=== PATIENT | male | born 1955 | race Caucasian/White ===

== ENCOUNTER 2017-11-02 11:32 | Observation (INO) | payer BC ==
[~2017-11-02] VITALS: Ht 188 cm; Wt 71.7 kg
[~2017-11-02 11:32] MED LIST: AMLODIPINE BESYL5 MG PO; CRESTOR10 MG PO; Z.0.CRESTOR10 MG PO; Z.0.PLAVIX75 MG
[2017-11-02] MEDS ORDERED: KETOROLAC TROMETHAMINE 30 MG/ML VIAL IV STA (11:38)
[2017-11-02 11:55] LABS: BASOPHILS % 0.4 % (0.0-1.0); EOSINOPHILS % 0.3 % (0.0-6.0); HEMOGLOBIN 18.2 g/dL (14.0-18.0); LYMPHOCYTES # (AUTO) 0.7 (1.0-3.2); LYMPHOCYTES % 6.7 % (18.0-39.1); MEAN CORPUSCULAR HEMOGLOBIN 29.7 pg (28-32); MEAN CORPUSCULAR HGB CONC 33.7 g/dL (31-35); MEAN CORPUSCULAR VOLUME 88.1 fL (81-99); MONOCYTES # (AUTO) 0.7 (0.2-0.8); MONOCYTES % 6.3 % (4.4-11.3); NEUTROPHILS % 85.8 % (38.7-80.0); PLATELET COUNT 315 x10e3/uL (140-360); RED BLOOD COUNT 6.13 x10e6/uL (4.3-5.7); RED CELL DISTRIBUTION WIDTH 14.5 % (11.7-14.4)
[2017-11-02 12:13] LABS: ANION GAP 14.5 mmol/L (8-16); BLOOD UREA NITROGEN 11 mg/dL (7-26); BUN/CREATININE RATIO 12 (6-25); CALCIUM 9.7 mg/dL (8.4-10.2); CARBON DIOXIDE 25 mmol/L (22-29); CHLORIDE 103 mmol/L (98-107); CREATININE, SERUM 0.93 mg/dL (0.72-1.25); EST GLOMERULAR FILTRATION RATE > 60 ML/MIN (60-); GLUCOSE 103 mg/dL (74-118); POTASSIUM 4.5 mmol/L (3.5-5.1); SODIUM 138 mmol/L (136-145)
--- NOTE | 2017-11-02 12:52 | Diagnostic Imaging Report ---
EXAM: CT Abdomen and Pelvis WITHOUT contrast INDICATION: Right flank pain COMPARISON: None. TECHNIQUE: Abdomen and Pelvis was scanned utilizing a multidetector helical scanner without the use of IV contrast. Coronal and sagittal reformations were obtained. IV CONTRAST: None COMPLICATIONS: None RADIATION DOSE: Total DLP: 238 mGy*cm Estimated effective dose: (DLP x 0.015 x size factor) mSv CTDIvol has been reviewed. It is below the limits set by the Radiation Protocol Committee (RPC). FINDINGS: Abdomen: Lung Bases: Atelectasis present in the lung bases with mild centrilobular emphysematous change and a few simple appearing cysts. Solid Organs: Nonenhanced images of the liver, adrenals, spleen, and pancreas are unremarkable. Several nonobstructing calculi are present in the right kidney, largest 8 mm. There is a 7 mm proximal to mid right ureteral calculus with mild to moderate right hydronephrosis. Upper GI Tract: Mild thickening distal esophageal wall, which can be seen in the setting of reflux. No small bowel obstructive changes. Vascularity: Mild aortic vascular calcifications with no aortic aneurysm. 24 mm aneurysm left common iliac artery and 23 mm aneurysm right common iliac artery. Lymph Nodes: Within limitations of nonenhanced exam, no suspicious adenopathy. Other: Partially decompressed, limiting evaluation. Pelvis: Bladder: Unremarkable. Other: Enlarged prostate 60 mm. Postsurgical changes inguinal canals bilaterally. Colon: No acute colonic findings. No evidence of appendicitis. Bones: No acute findings. IMPRESSION: 1. 7 mm calculus proximal to mid right ureter with hydronephrosis. 2. Nonobstructing right renal calculi. 3. Enlarged prostate. Clinical and laboratory correlation recommended. 4. Bilateral common iliac aneurysms. Signed by: Dr. Negro Doss MD on 11/02/2017 12:49 PM
[2017-11-02 13:40] LABS: BILIRUBIN,URINE 1+ (NEGATIVE); CLARITY,URINE SL CLOUDY (CLEAR); COLOR,URINE YELLOW (YELLOW); KETONES,URINE 2+ (NEGATIVE); LEUKOCYTE ESTERASE ,URINE TRACE (NEGATIVE); NITRITE,URINE NEGATIVE (NEGATIVE); PROTEIN,URINE DIPSTICK TRACE (NEGATIVE); URINE UROBILINOGEN 0.2 mg/dL (0.2 - 1)
[2017-11-02 13:54] LABS: BACTERIA,URINE RARE /HPF; RBC,URINE 21-50 /HPF (0-5); WBC,URINE (MAN) 0-5 /HPF (0-5)
[2017-11-02 13:55] LABS: EPITHELIAL CELLS,URINE RARE /LPF
[2017-11-02 13:56] LABS: YEAST,URINE FEW
[2017-11-02] MEDS ORDERED: ONDANSETRON HCL INJ 2 MG/ML VIAL IV PRN (14:00)
[2017-11-02] MEDS: SODIUM CHLORIDE 0.9% 1000ML 1,000 ML IV SCH (16:03)
[2017-11-02] MEDS: HYDROMORPHONE 2MG/ML INJ IV PRN (16:03)
[2017-11-02 18:13] VITALS: BP 149/94
[2017-11-02 18:35] VITALS: BP 149/94
[2017-11-02 19:23] VITALS: BP 139/77
[2017-11-02 19:45] VITALS: BP 139/77
[2017-11-03] VITALS (8 sets, daily range): BP systolic 126–150; BP diastolic 81–94
[2017-11-03] MEDS: SODIUM CHLORIDE 0.9% 1000ML 1,000 ML IV SCH ×2 (01:05→18:29)
[2017-11-03] MEDS: HYDROMORPHONE 2MG/ML INJ IV PRN ×2 (02:15→06:26)
[2017-11-03 06:39] LABS: BASOPHILS % 0.4 % (0.0-1.0); EOSINOPHILS # (AUTO) 0.1 (0.0-0.4); EOSINOPHILS % 1.9 % (0.0-6.0); HEMATOCRIT 49.3 % (38.2-49.6); HEMOGLOBIN 16.5 g/dL (14.0-18.0); LYMPHOCYTES # (AUTO) 1.9 (1.0-3.2); LYMPHOCYTES % 25.4 % (18.0-39.1); MEAN CORPUSCULAR HEMOGLOBIN 30.1 pg (28-32); MEAN CORPUSCULAR HGB CONC 33.5 g/dL (31-35); MONOCYTES # (AUTO) 0.9 (0.2-0.8); NEUTROPHILS # (AUTO) 4.4 (2.1-6.9); NEUTROPHILS % 59.9 % (38.7-80.0); PLATELET COUNT 289 x10e3/uL (140-360); RED BLOOD COUNT 5.48 x10e6/uL (4.3-5.7); RED CELL DISTRIBUTION WIDTH 14.6 % (11.7-14.4)
[2017-11-03 06:56] LABS: ANION GAP 12.4 mmol/L (8-16); BLOOD UREA NITROGEN 13 mg/dL (7-26); BUN/CREATININE RATIO 15 (6-25); CALCIUM 8.5 mg/dL (8.4-10.2); CARBON DIOXIDE 25 mmol/L (22-29); CHLORIDE 108 mmol/L (98-107); CREATININE, SERUM 0.84 mg/dL (0.72-1.25); EST GLOMERULAR FILTRATION RATE > 60 ML/MIN (60-); GLUCOSE 97 mg/dL (74-118); POTASSIUM 4.4 mmol/L (3.5-5.1); SODIUM 141 mmol/L (136-145)
[2017-11-03] MEDS: LEVOFLOXACIN 500MG/D5W 100ML 100 ML IV SCH (09:54)
[2017-11-04] VITALS (9 sets, daily range): BP systolic 125–183; BP diastolic 79–96
[2017-11-04] MEDS: SODIUM CHLORIDE 0.9% 1000ML 1,000 ML IV SCH ×4 (03:55→21:53)
--- NOTE | 2017-11-04 06:55 | Diagnostic Imaging Report ---
EXAM: ABDOMEN-1VIEW (KUB) DATE: 11/04/2017 6:07 AM Time stamp on exam: 6:10 AM INDICATION: Nephrolithiasis COMPARISON: 11/02/2017 CT of the abdomen and pelvis without contrast FINDINGS: LINES/TUBES: None BOWEL PATTERN: No evidence for obstruction. SOFT TISSUES: There is a 1 cm calcification overlying the interpolar region of the right kidney compatible with nephrolithiasis. There is also a 9 mm stone overlying the right L5 transverse process compatible with mid ureteral stone LUNG BASES: Not included BONES: No acute findings. IMPRESSION: Right-sided nephrolithiasis and right-sided proximal right ureteral stone as described above. Signed by: Dr. Celestine Ivy M.D. on 11/04/2017 6:52 AM
[2017-11-04] MEDS: LEVOFLOXACIN 500MG/D5W 100ML 100 ML IV SCH (09:59)
[2017-11-05 04:18] VITALS: BP 163/96
[2017-11-05] MEDS: SODIUM CHLORIDE 0.9% 1000ML 1,000 ML IV SCH ×2 (05:53→14:43)
[2017-11-05] MEDS ORDERED: IOPAMIDOL 610MG/1ML 300 MG/ML VIAL IV ONE ×2 (06:26)
[2017-11-05 07:05] VITALS: BP 161/91
[2017-11-05] MEDS: LEVOFLOXACIN 500MG/D5W 100ML 100 ML IV SCH (08:43)
[2017-11-05 08:45] VITALS: BP 138/86
[2017-11-05 11:14] VITALS: BP 179/92
[2017-11-05] MEDS ORDERED: ROSUVASTATIN CALCIUM 5 MG PO SCH (12:00)
[2017-11-05] MEDS ORDERED: AMLODIPINE BESYLATE 5 MG TAB PO SCH (12:00)
--- NOTE | 2017-11-05 12:23 | Operative Report ---
DATE OF PROCEDURE: November 05, 2017 PREOPERATIVE DIAGNOSES 1. Microscopic hematuria. 2. Right-sided hydronephrosis. POSTOPERATIVE DIAGNOSES 1. Microscopic hematuria. 2. Right-sided hydronephrosis. PROCEDURES 1. Cystourethroscopy with bilateral ureteral catheterization and bilateral retrograde pyelograms (entirely separate procedure for microscopic hematuria). 2. Cystourethroscopy with insertion of a right indwelling ureteral stent (entirely separate procedure for diagnosis of right hydronephrosis). 3. Supervision of fluoroscopy. 4. Interpretation of retrograde pyelography. ANESTHESIA: General. ESTIMATED BLOOD LOSS: Minimal. COMPLICATIONS: None. INDICATIONS FOR PROCEDURE: Mr. Thompson is a very pleasant, 61-year-old male who has a 7 x 8-mm proximal right ureteral stone. He has failed a trial of passage. He and I had a long discussion regarding the alternatives, risks and benefits, including doing nothing, stent placement, percutaneous surgery and open surgery. He voiced an understanding of the options, the alternatives, and the risks and benefits, and he elected to proceed. PROCEDURE IN DETAIL: Informed consent was obtained. The patient was taken to the operative suite and placed supine on the operative table and underwent general anesthesia by the anesthesia service. He was placed in the dorsal lithotomy position. He was sterilely prepped and draped in the standard fashion for cystoscopy. A 22.5-Maldivian cystoscope was inserted per urethra. A normal urethra was noted. Panendoscopy of the bladder revealed no tumors and no stones. Both ureteral orifices were normal in their location and position and were seen to efflux clear urine. Bilateral retrograde pyelograms were performed. The left was normal. The right revealed a 7 x 8-mm proximal ureteral calculus with proximal hydronephrosis. A guidewire was inserted and seen to flow proximal to the ureteral calculus. A 5-Maldivian, open-ended catheter was utilized to manipulate the calculus cephalad. It was advanced proximal to the stone. A hydronephrotic drip was seen. The wire was then placed. A stent was placed, 6 x 28 cm, with a coil in the upper pole of the kidney and a coil in the bladder. The patient's bladder was drained. He was awakened from anesthesia and transported to the recovery room in excellent condition. SUPERVISION OF FLUOROSCOPY AND INTERPRETATION OF RETROGRADE PYELOGRAPHY: I was present throughout the entire procedure and supervised the use of fluoroscopy. There was no radiologist present at any time during the procedure. Attention was turned toward the left and right ureteral orifices, which were catheterized with a 5-Maldivian, open-ended catheter. The left was normal. The right revealed a 7 x 8-mm proximal ureteral calculus with hydronephrosis. Postoperatively, the right ureteral stent was in good position. Job#: [id number]
[2017-11-05 15:46] VITALS: BP 156/80
[2017-11-05] MEDS ORDERED: SEVOFLURANE INHAL SOLN 250 ML PEN BTL ONE (18:15)
[2017-11-05] MEDS ORDERED: LIDOCAINE HCL 2% LOCAL INJ 5 ML SDV VIAL INJ ONE (18:15)
[2017-11-05] MEDS ORDERED: PROPOFOL IV EMULSION 10 MG/ML 20 ML VIAL ONE (18:15)
[2017-11-05] MEDS ORDERED: EPHEDRINE SULFATE INJ 50 MG/10 ML SYR ONE (18:15)
[2017-11-05] MEDS ORDERED: ONDANSETRON HCL INJ 2 MG/ML VIAL ONE (18:15)
[2017-11-05] MEDS ORDERED: DEXAMETHASONE SOD PHOS INJ 4 MG/ML VIAL ONE (18:15)
[2017-11-05] MEDS ORDERED: FENTANYL CITRATE/PF 100MCG/2 ML INJ ONE (18:19)
[2017-11-05] MEDS ORDERED: MIDAZOLAM HCL 2 MG/2 ML VIAL ONE (18:19)
[2017-11-05] MEDS ORDERED: SIMVASTATIN 20 MG TAB PO SCH (21:00)
== END 2017-11-05 17:04 | disposition home or self-care (01) ==
LOC: ER 11:32 → ERHOLD 16:23 → IMCU 16:25
PROVIDERS: ADMIT Internal Medicine; ATTEND Internal Medicine
DX: N13.2 Hydronephrosis with renal and ureteral calculous obstruction (principal); N39.0 Urinary tract infection, site not specified; I25.10 Atherosclerotic heart disease of native coronary artery without angina pectoris; I10 Essential (primary) hypertension; E78.5 Hyperlipidemia, unspecified; E11.9 Type 2 diabetes mellitus without complications; Z86.73 Personal history of transient ischemic attack (TIA), and cerebral infarction without residual deficits
CPT/HCPCS: 36415 ×2; 52332; 74000; 74176; 74420; 80048 ×2; 81001; 85025 ×2; 87086; 96360; 96361; 99284; G0378 ×4; J1100; J1170 ×2; J1885; J1956 ×3; J2001; J2250; J2405 ×2; J7030 ×4; Q9967

== ENCOUNTER 2017-11-23 20:13 | Inpatient (IN) | payer BC ==
[~2017-11-23] VITALS: Ht 188 cm; Wt 73.0 kg
--- OUTSIDE RECORDS SUMMARY | 2017-11-23 20:17 | XMS REPORT ---
Author Author [facility] Address Unknown Phone Unavailable Care Team Providers Care Prescription Clerk Name Role Phone ROXANA SHIPMAN Unavailable Unavailable Problems This patient has no known problems. Allergies, Adverse Reactions, Alerts This patient has no known allergies or adverse reactions. Medications This patient has no known medications. Results Test Description Test Time Test Comments Text Results Atomic Results Result Comments ABDOMEN-1VIEW (KUB) [place] [address] Patient Name: OTIS CRESPO MR #: [id number] : 1955 Age/Sex: 62/M Req # : [id number] Adm Physician: ROXANA SHIPMAN MD Ordered by: ROXANA SHIPMAN MD Report #: [id number] Location: [facility] Room/Bed: [place] [address] _ Procedure: [id number] DX/ABDOMEN-1VIEW (KUB) Exam Date: 11/04/17 Exam Time: 0610 REPORT STATUS: Signed EXAM: ABDOMEN- 1VIEW (KUB) DATE: 11/04/2017 6:07 AM Time stamp on exam: 6:10 AM INDICATION : Nephrolithiasis COMPARISON: 11/02/2017 CT of the abdomen and pelvis without contrast FINDINGS: LINES/TUBES: None BOWEL PATTERN: No evidence for obstruction. SOFT TISSUES: There is a 1 cm calcification overlying the interpolar region of the right kidney compatible with nephrolithiasis. There is also a 9 mm stone overlying the right L5 transverse process compatible with mid ureteral stone LUNG BASES: Not included BONES: No acute findings. IMPRESSION: Right-sided nephrolithiasis and right-sided proximal right ureteral stone as described above. Signed by: Dr. Celestine Ivy M.D. on 11/04/2017 6:52 AM Dictated By: CELESTINE COLE MD 1 Transcribed By: WILD on 11/04/17651 COPY TO: ROXANA SHIPMAN MD CT ABDOMEN/PELVIS WO [place] [address] Patient Name: OTIS CRESPO MR #: [id number] : 1955 Age/Sex: 61/M Req # : [id number] Adm Physician: Ordered by: ESTELA BLANCA MD Report #: [id number] Location: ER Room/Bed: Procedure: [id number] CT/CT ABDOMEN/PELVIS WO Exam Date: 11/02/17 Exam Time: 1220 REPORT STATUS: Signed EXAM: CT Abdomen and Pelvis WITHOUT contrast INDICATION: Right flank pain COMPARISON: None. TECHNIQUE: Abdomen and Pelvis was scanned utilizing a multidetector helical scanner without the use of IV contrast. Coronal and sagittal reformations were obtained. IV CONTRAST: None COMPLICATIONS : None RADIATION DOSE: Total DLP: 238 mGy*cm Estimated effective dose: (DLP x 0.015 x size factor) mSv CTDIvol has been reviewed. It is below the limits set by the Radiation Protocol Committee (RPC) . FINDINGS: Abdomen: Lung Bases: Atelectasis present in the lung bases with mild centrilobular emphysematous change and a few simple appearing cysts. Solid Organs: Nonenhanced images of the liver, adrenals, spleen, and pancreas are unremarkable. Several nonobstructing calculi are present in the right kidney, largest 8 mm. There is a 7 mm proximal to mid right ureteral calculus with mild to moderate right hydronephrosis. Upper GI Tract: Mild thickening distal esophageal wall, which can be seen in the setting of reflux. No small bowel obstructive changes. Vascularity: Mild aortic vascular calcifications with no aortic aneurysm. 24 mm aneurysm left common iliac artery and 23 mm aneurysm right common iliac artery. Lymph Nodes: Within limitations of nonenhanced exam, no suspicious adenopathy. Other: Partially decompressed, limiting evaluation. Pelvis: Bladder: Unremarkable. Other: Enlarged prostate 60 mm. Postsurgical changes inguinal canals bilaterally. Colon: No acute colonic findings. No evidence of appendicitis. Bones: No acute findings. IMPRESSION: 1. 7 mm calculus proximal to mid right ureter with hydronephrosis. 2. Nonobstructing right renal calculi. 3. Enlarged prostate. Clinical and laboratory correlation recommended. 4. Bilateral common iliac aneurysms. Signed by: Dr. Negro Doss MD on 11/02/2017 12:49 PM Dictated By: NEGRO DOSS MD 1245 Transcribed By: WILD on 11/02/17 1249 COPY TO: ESTELA BLANCA MD
[2017-11-23] MEDS ORDERED: MORPHINE SULFATE 4 MG/ML SYR IV STA (20:34)
[2017-11-23] MEDS ORDERED: SODIUM CHLORIDE 0.9% 1000ML 1,000 ML IV STA (20:34)
[2017-11-23] MEDS ORDERED: ONDANSETRON HCL INJ 2 MG/ML VIAL IV STA (20:34)
[2017-11-23] MEDS ORDERED: MORPHINE SULFATE 2 MG/ML SYR ONE (21:04)
[2017-11-23] MEDS ORDERED: HYDROMORPHONE 1MG/1ML INJ IV STA (21:27)
[2017-11-23 21:50] LABS: BASOPHILS % 0.2 % (0.0-1.0); EOSINOPHILS % 0.3 % (0.0-6.0); HEMATOCRIT 52.3 % (38.2-49.6); LYMPHOCYTES # (AUTO) 1.1 (1.0-3.2); LYMPHOCYTES % 8.1 % (18.0-39.1); MEAN CORPUSCULAR HEMOGLOBIN 30.1 pg (28-32); MEAN CORPUSCULAR HGB CONC 34.4 g/dL (31-35); MEAN CORPUSCULAR VOLUME 87.5 fL (81-99); MONOCYTES # (AUTO) 0.8 (0.2-0.8); MONOCYTES % 6.2 % (4.4-11.3); NEUTROPHILS # (AUTO) 11.5 (2.1-6.9); NEUTROPHILS % 84.6 % (38.7-80.0); PLATELET COUNT 352 x10e3/uL (140-360); RED BLOOD COUNT 5.98 x10e6/uL (4.3-5.7); RED CELL DISTRIBUTION WIDTH 14.5 % (11.7-14.4)
[2017-11-23 21:52] LABS: BILIRUBIN,URINE NEGATIVE (NEGATIVE); COLOR,URINE YELLOW (YELLOW); KETONES,URINE 2+ (NEGATIVE); LEUKOCYTE ESTERASE ,URINE NEGATIVE (NEGATIVE); NITRITE,URINE NEGATIVE (NEGATIVE); URINE UROBILINOGEN 0.2 mg/dL (0.2 - 1)
[2017-11-23 22:02] LABS: PROTEIN,URINE DIPSTICK 1+ (NEGATIVE)
[2017-11-23 22:03] LABS: CLARITY,URINE HAZY (CLEAR)
[2017-11-23 22:20] LABS: BACTERIA,URINE FEW /HPF; RBC,URINE >50 /HPF (0-5); WBC,URINE (MAN) 0-5 /HPF (0-5)
--- NOTE | 2017-11-23 22:48 | Diagnostic Imaging Report ---
EXAM: CT ABDOMEN AND PELVIS without IV CONTRAST ORDER DATE: 11/23/2017 8:34 PM Time stamp on Exam: 2214 hours INDICATION: Stomach and right-sided pain COMPARISON: CT of the abdomen and pelvis November 02, 2017 TECHNIQUE: The abdomen and pelvis were scanned using a multidetector helical scanner. Coronal and sagittal reformations were obtained. Renal stone protocol performed. IV Contrast: None Oral Contrast: None CTDIvol has been reviewed. It is below the limits set by the Radiation Protocol Committee (RPC). FINDINGS: LOWER THORAX: Stable chronic changes in the lung bases including reticulation, traction bronchiectasis, groundglass opacities and cystic spaces. LIVER: No masses BILIARY: Normal gallbladder. No ductal dilation. SPLEEN: No masses PANCREAS: No masses ADRENALS: No nodules RIGHT KIDNEY: Conglomeration of stones up to 1.5 cm in the distal right ureter near the ureterovesicular junction resulting in moderate to severe hydroureteronephrosis and periureteral fat stranding. Several small stones in the superior and inferior calyces measuring up to 3 mm. LEFT KIDNEY: No nephroureterolithiasis or hydronephrosis. GI TRACT: Partially visualized moderate hiatal hernia with nonspecific mucosal thickening. Normal appendix. VESSELS: Moderate atherosclerotic changes of the abdominal aorta without aneurysm. PERITONEUM/RETROPERITONEUM: No free air or fluid LYMPH NODES: No lymphadenopathy REPRODUCTIVE ORGANS: The prostate measures 5.5 cm in transverse diameter. BLADDER: Small focus of air in the bladder, please correlate with recent instrumentation. SOFT TISSUES: Surgical changes of pelvic anterior hernia repair. BONES: No suspicious bone lesions. IMPRESSION: Stone conglomerate measuring up to 1.5 cm in length in the distal right ureter near the ureterovesicular junction resulting in moderate to severe right hydroureteronephrosis and periureteral fat stranding. Signed by: Dr. Tosin Rawls M.D. on 11/23/2017 10:44 PM
[2017-11-23 23:03] LABS: ALANINE AMINOTRANSFERASE 14 IU/L (0-55); ALBUMIN 3.8 g/dL (3.5-5.0); ALBUMIN/GLOBULIN RATIO 0.8 (0.8-2.0); ALKALINE PHOSPHATASE 86 IU/L (40-150); ANION GAP 17.3 mmol/L (8-16); BLOOD UREA NITROGEN 11 mg/dL (7-26); BUN/CREATININE RATIO 9 (6-25); CALCIUM 9.6 mg/dL (8.4-10.2); CARBON DIOXIDE 22 mmol/L (22-29); CHLORIDE 96 mmol/L (98-107); CREATINE KINASE 117 IU/L (30-200); CREATININE, SERUM 1.21 mg/dL (0.72-1.25); EST GLOMERULAR FILTRATION RATE > 60 ML/MIN (60-); GLUCOSE 100 mg/dL (74-118); POTASSIUM 4.3 mmol/L (3.5-5.1); SODIUM 131 mmol/L (136-145)
[2017-11-23] MEDS ORDERED: PANTOPRAZOLE 40 MG 10ML VIAL IV STA (23:29)
[2017-11-24] VITALS (7 sets, daily range): BP systolic 118–133; BP diastolic 74–81
[2017-11-24] MEDS: SODIUM CHLORIDE 0.9% 1000ML 1,000 ML IV SCH ×3 (00:02→19:20)
[2017-11-24] MEDS: CEFTRIAXONE SOD 1 GM VIAL IV SCH ×2 (00:02→23:24)
[2017-11-24] MEDS: ONDANSETRON HCL INJ 2 MG/ML VIAL IV PRN ×4 (00:02→22:30)
[2017-11-24] MEDS: HYDROMORPHONE 1MG/1ML INJ IV PRN ×2 (00:03→04:11)
[2017-11-24 07:47] LABS: BASOPHILS % 0.2 % (0.0-1.0); EOSINOPHILS # (AUTO) 0.1 (0.0-0.4); EOSINOPHILS % 0.6 % (0.0-6.0); HEMATOCRIT 46.8 % (38.2-49.6); HEMOGLOBIN 15.8 g/dL (14.0-18.0); LYMPHOCYTES # (AUTO) 1.3 (1.0-3.2); LYMPHOCYTES % 10.6 % (18.0-39.1); MEAN CORPUSCULAR HEMOGLOBIN 29.6 pg (28-32); MEAN CORPUSCULAR HGB CONC 33.8 g/dL (31-35); MEAN CORPUSCULAR VOLUME 87.6 fL (81-99); MONOCYTES # (AUTO) 1.2 (0.2-0.8); MONOCYTES % 9.2 % (4.4-11.3); NEUTROPHILS # (AUTO) 9.9 (2.1-6.9); PLATELET COUNT 304 x10e3/uL (140-360); RED BLOOD COUNT 5.34 x10e6/uL (4.3-5.7)
[2017-11-24 08:06] LABS: ANION GAP 10.1 mmol/L (8-16); BLOOD UREA NITROGEN 10 mg/dL (7-26); BUN/CREATININE RATIO 10 (6-25); CALCIUM 8.6 mg/dL (8.4-10.2); CARBON DIOXIDE 24 mmol/L (22-29); CHLORIDE 102 mmol/L (98-107); CREATININE, SERUM 1.01 mg/dL (0.72-1.25); EST GLOMERULAR FILTRATION RATE > 60 ML/MIN (60-); GLUCOSE 97 mg/dL (74-118); POTASSIUM 4.1 mmol/L (3.5-5.1); SODIUM 132 mmol/L (136-145)
--- NOTE | 2017-11-24 08:30 | Diagnostic Imaging Report ---
PROCEDURE:ABDOMEN-1VIEW (KUB) TECHNIQUE:Supine AP abdomen totaling 2 radiographs INDICATION:Right UVJ calculus COMPARISON:Patients [facility], CT, CT ABDOMEN/PELVIS WO, 11/23/2017, 22:13. FINDINGS: See conclusion. CONCLUSION: 1. 1 x 0.7 cm stone at the right ureterovesicular junction unchanged from the CT of November 23, 2017. Stable numerous punctate calcifications behind the stone are also unchanged. 2. Punctate right inferior pole stones unchanged. 3. Normal bowel gas pattern. Dictated by: Godwin Agustin M.D. on 11/24/2017 at 8:39 Electronically approved by: Godwin Agustin M.D. on 11/24/2017 at 8:39
[2017-11-24] MEDS: PANTOPRAZOLE 40 MG 10ML VIAL IV SCH (09:04)
--- NOTE | 2017-11-24 09:09 | History and Physical ---
This patient came in for abdominal pain, flank pain. HISTORY OF PRESENT ILLNESS: This patient came in with abdominal pain, intensity 8/10, also with hematuria. The patient recently had lithotripsy and stent removal by Dr. Lee, and apparently, as per studies, the stone has not budged, and he needs a stent again. PAST MEDICAL HISTORY: History of hypertension. History of hyperlipidemia. The patient also has a history of kidney stones. SURGICAL HISTORY: History of tonsillectomy and adenoidectomy. Also had atrioseptal defect repair when he was young. Right kidney stent placement as noted. Also, history of cervical laminectomy by Dr. Eisenberg. SOCIAL HISTORY: History of smoking. No EtOH. No IV drug abuse. He is still a smoker. REVIEW OF SYSTEMS: Negative for chest pain. Possible shortness of breath. Positive for nausea. No vomiting or diarrhea. No constipation. No rectal bleeding. No hematochezia. No hematemesis. Positive for hematuria. Positive for flank pain, also. MEDICATIONS: Amlodipine 5 mg and rosuvastatin 10 mg. PHYSICAL EXAMINATION VITAL SIGNS: Temperature 97.2, pulse 75, respirations 17, blood pressure 119/80, pulse ox 94% on room air. HEENT: Normocephalic and atraumatic. LUNGS: Decreased air entry. ABDOMEN: Right flank pain with right-sided CVA tenderness and suprapubic tenderness. EXTREMITIES: No clubbing. No cyanosis. No edema. IMAGING STUDIES: Abdominal CT shows stone conglomerate measuring about 1.5 cm in length, distal right ureter near the UV junction, resulting in severe hydronephrosis. ASSESSMENT AND PLAN: Nephrolithiasis with hydronephrosis. Consult with Dr. Lee has been done. The patient will be taken for another stent. Pain control and continue home medications. Further recommendations per the clinical course. Will continue to monitor the patient. The patient's white count as been 13,000. Neutrophil count 11.5. Chemistries: Sodium 131, BUN 11, creatinine 1.21. Will continue to monitor the patient, and he will be taken for a stent today. Job#: [id number]
[2017-11-24] MEDS: HYDROMORPHONE 2MG/ML INJ IV PRN ×3 (12:00→22:30)
[2017-11-25] VITALS (7 sets, daily range): BP systolic 113–135; BP diastolic 72–82
[2017-11-25] MEDS: HYDROMORPHONE 2MG/ML INJ IV PRN ×4 (04:32→20:01)
[2017-11-25] MEDS: SODIUM CHLORIDE 0.9% 1000ML 1,000 ML IV SCH ×3 (04:32→23:53)
[2017-11-25] MEDS: ONDANSETRON HCL INJ 2 MG/ML VIAL IV PRN ×2 (04:32→20:11)
[2017-11-25 07:06] LABS: BASOPHILS % 0.5 % (0.0-1.0); EOSINOPHILS # (AUTO) 0.2 (0.0-0.4); EOSINOPHILS % 1.9 % (0.0-6.0); HEMATOCRIT 45.7 % (38.2-49.6); HEMOGLOBIN 15.2 g/dL (14.0-18.0); LYMPHOCYTES # (AUTO) 1.5 (1.0-3.2); LYMPHOCYTES % 18.5 % (18.0-39.1); MEAN CORPUSCULAR HEMOGLOBIN 29.6 pg (28-32); MEAN CORPUSCULAR HGB CONC 33.3 g/dL (31-35); MEAN CORPUSCULAR VOLUME 89.1 fL (81-99); MONOCYTES # (AUTO) 0.8 (0.2-0.8); MONOCYTES % 10.3 % (4.4-11.3); NEUTROPHILS # (AUTO) 5.5 (2.1-6.9); NEUTROPHILS % 68.3 % (38.7-80.0); PLATELET COUNT 315 x10e3/uL (140-360); RED BLOOD COUNT 5.13 x10e6/uL (4.3-5.7); RED CELL DISTRIBUTION WIDTH 14.2 % (11.7-14.4)
[2017-11-25 07:26] LABS: ANION GAP 14.3 mmol/L (8-16); BLOOD UREA NITROGEN 15 mg/dL (7-26); BUN/CREATININE RATIO 15 (6-25); CARBON DIOXIDE 23 mmol/L (22-29); CHLORIDE 103 mmol/L (98-107); CREATININE, SERUM 0.98 mg/dL (0.72-1.25); EST GLOMERULAR FILTRATION RATE > 60 ML/MIN (60-); GLUCOSE 71 mg/dL (74-118); POTASSIUM 4.3 mmol/L (3.5-5.1); SODIUM 136 mmol/L (136-145)
[2017-11-25] MEDS: PANTOPRAZOLE 40 MG 10ML VIAL IV SCH (09:30)
--- NOTE | 2017-11-25 17:44 | Diagnostic Imaging Report ---
PROCEDURE:X-RAY ABDOMEN - KUB COMPARISON:Patients [facility], CT, CT ABDOMEN/PELVIS WO, 11/23/2017, 22:13. Patients [facility], DX, ABDOMEN-1VIEW (KUB), 11/24/2017, 8:03. INDICATIONS:KIDNEY STONE FOLLOW UP FINDINGS: There are no dilated loops of bowel to suggest obstruction. A 0.8 cm calcific density again projected on the left hemipelvis laterally, unchanged. There is no evidence of free air. No acute osseous abnormalities are present. Status post bilateral internal hernia repair with mesh. Mild degenerative changes of the bilateral SI and hip joints. CONCLUSION: A 0.8 cm calcific density again projected on the left hemipelvis laterally, unchanged. Onofre Edwards M.D. Dictated by: Onofre Edwards M.D. on 11/25/2017 at 17:53 Electronically approved by: Onofre Edwards M.D. on 11/25/2017 at 17:53
[2017-11-25] MEDS: CEFTRIAXONE SOD 1 GM VIAL IV SCH (20:01)
[2017-11-26] VITALS: BP 134/82
[2017-11-26] MEDS: CEFTRIAXONE SOD 1 GM VIAL IV SCH (00:10)
[2017-11-26] MEDS: HYDROMORPHONE 2MG/ML INJ IV PRN (00:10)
[2017-11-26] MEDS: ONDANSETRON HCL INJ 2 MG/ML VIAL IV PRN (00:10)
[2017-11-26 01:39] VITALS: BP 134/82
[2017-11-26 04:00] VITALS: BP 160/84
[2017-11-26] MEDS ORDERED: IOPAMIDOL 610MG/1ML 300 MG/ML VIAL IV ONE (06:43)
[2017-11-26 08:47] VITALS: BP 162/86
[2017-11-26] MEDS: PANTOPRAZOLE 40 MG 10ML VIAL IV SCH (08:51)
--- NOTE | 2017-11-26 09:33 | Operative Report ---
DATE OF PROCEDURE: November 26, 2017 PREOPERATIVE DIAGNOSES: 1. Right hydronephrosis. 2. Microscopic hematuria. POSTOPERATIVE DIAGNOSES: 1. Right hydronephrosis. 2. Microscopic hematuria. PROCEDURES: 1. Cystourethroscopy with right ureteral stent placement (entirely separate procedure for right hydronephrosis). 2. Supervision of fluoroscopy. 3. Interpretation of retrograde pyelography. ANESTHESIA: General. ESTIMATED BLOOD LOSS: Minimal. COMPLICATIONS: None. INDICATIONS: Mr. Thompson is a 62-year-old male who had a previous staged lithotripsy, now presents with steinstrasse and obstructing blocked right kidney. He and I had a long discussion regarding alternatives, risks and benefits including doing nothing, stent placement which is temporary. He voiced understanding of the options, alternatives, risks, and benefits, and elected to proceed. PROCEDURE IN DETAIL: After informed consent was obtained, the patient was taken to the operative suite and placed supine on the operating table. He underwent general anesthesia by the anesthesia services. He was placed in dorsal lithotomy position and sterilely prepped and draped in a standard fashion for cystoscopy. A 22.5-Tuvaluan cystoscope was inserted per urethra. A normal urethra was noted. Panendoscopy of the bladder revealed no stones. Right ureteral orifice was catheterized. Retrograde pyelogram was performed revealing very large steinstrasse on the right distal ureter with severe proximal hydronephrosis with ureteral tortuosity. With moderate degree of difficulty, guidewire was inserted proximal to this and the open-ended was advanced proximal, hydronephrotic drip briskly was seen. A 6 x 28 cm ureteral stent was deployed with a coil in the renal pelvis and a coil in the patient's bladder. Patient's bladder was drained. He was awakened from anesthesia and transported to the recovery room in excellent condition. SUPERVISION OF FLUOROSCOPY AND INTERPRETATION OF RETROGRADE PYELOGRAPHY: I was present throughout the entire procedure and I supervised the use of fluoroscopy. There was no radiologist present at any time during this procedure. Attention was turned towards the right ureteral orifice, which was catheterized. Retrograde pyelogram was performed revealing distal 1.5 cm steinstrasse and proximal hydronephrosis. Postoperative views revealed the right ureteral stent in good position. Job#: [id number]
[2017-11-26 11:37] VITALS: BP 138/78
[2017-11-26] MEDS ORDERED: DEXAMETHASONE SOD PHOS INJ 4 MG/ML VIAL ONE (15:01)
[2017-11-26] MEDS ORDERED: ONDANSETRON HCL INJ 2 MG/ML VIAL ONE (15:01)
[2017-11-26] MEDS ORDERED: SEVOFLURANE INHAL SOLN 250 ML PEN BTL ONE (15:01)
[2017-11-26] MEDS ORDERED: LIDOCAINE HCL 2% LOCAL INJ 5 ML SDV VIAL INJ ONE (15:01)
[2017-11-26] MEDS ORDERED: PROPOFOL IV EMULSION 10 MG/ML 20 ML VIAL ONE (15:01)
[2017-11-26] MEDS ORDERED: FENTANYL CITRATE/PF 100MCG/2 ML INJ ONE (17:29)
[2017-11-26] MEDS ORDERED: MIDAZOLAM HCL 2 MG/2 ML VIAL ONE (17:29)
== END 2017-11-26 15:04 | disposition home or self-care (01) | DRG 694 ==
LOC: ER 20:13 → ERHOLD 23:46 → INTOOBSV 23:46 → IMCU 11-24 04:25 → OBSVTOIN 11-25 19:23 → MED/SURG2 11-26 13:32
PROVIDERS: ADMIT Internal Medicine; ATTEND Internal Medicine
PROC: BT1D1ZZ Fluoroscopy of Right Kidney, Ureter and Bladder using Low Osmolar Contrast (ICD-10-PCS; 2017-11-26)
PROC: 0T9680Z Drainage of Right Ureter with Drainage Device, Via Natural or Artificial Opening Endoscopic (ICD-10-PCS; principal; 2017-11-26 06:49)
DX: N13.2 Hydronephrosis with renal and ureteral calculous obstruction (principal); I10 Essential (primary) hypertension; E78.5 Hyperlipidemia, unspecified; I25.10 Atherosclerotic heart disease of native coronary artery without angina pectoris; Z95.1 Presence of aortocoronary bypass graft; Z86.73 Personal history of transient ischemic attack (TIA), and cerebral infarction without residual deficits; Z87.74 Personal history of (corrected) congenital malformations of heart and circulatory system
CPT/HCPCS: 36415; 74018; 74176; 74420; 80048; 80053; 81001; 82550; 82553; 84484; 85025; 87086; 96365; 96374; 96375; 96376; 99284; C2617; G0378; J0696; J1100; J2001; J2250; J2270; J2405; J7030

== ENCOUNTER → 2018-04-06 | Outpatient (CLI) | payer BC ==
--- NOTE | 2018-04-06 11:16 | Diagnostic Imaging Report ---
PROCEDURE:ABDOMEN-1VIEW (KUB) TECHNIQUE:Supine AP abdomen totaling 3 radiographs INDICATION:Calculus of kidney COMPARISON:[facility], DX, ABDOMEN-1VIEW (KUB), 11/25/2017, 16:06. FINDINGS: See conclusion. CONCLUSION: 1. No conspicuous calcifications overlying the kidneys or ureters. 2. Small vascular calcifications of the left sacral foramen. 3. Hernia repair. Normal bowel gas pattern. 4. Intact skeleton. Dictated by: Godwin Agustin M.D. on 04/06/2018 at 11:18 Electronically approved by: Godwin Agustin M.D. on 04/06/2018 at 11:18
== END | disposition home or self-care (01) ==
LOC: RAD 10:42
PROVIDERS: ATTEND Urology
DX: N20.0 Calculus of kidney (principal)
CPT/HCPCS: 74018

== ENCOUNTER → 2018-11-30 | Outpatient (CLI) | payer BC ==
--- NOTE | 2018-12-01 08:18 | Diagnostic Imaging Report ---
MRI SPINE LUMBAR WO HISTORY: Low back pain, bilateral leg pain COMPARISON: CT of the abdomen and pelvis 11/23/2017 and 11/02/2017 TECHNIQUE: Sagittal T1, sagittal T2, sagittal STIR, axial T2, coronal T2, and axial proton density weighted images of the lumbar spine were obtained without contrast. Motion artifacts obscure some details.. DISCUSSION: Number of non-rib bearing lumbar vertebral bodies: 5. Alignment: Normal lordosis. No scoliosis. Vertebrae: Scattered T1 hypointense/STIR hyperintense nodular/masslike marrow lesions throughout the visualized spine are present. These lesions are mostly in the vertebral bodies; however, there is some posterior element involvement. The sacrum and bilateral iliac bones are involved. Associated mild compression deformity of the L1 inferior endplate is age indeterminate. There is no significant retropulsion. No other definite vertebral compression deformities are seen. Conus medullaris: Normal, ends at L1. Cauda equina: No masses or arachnoiditis. Posterior paraspinal muscles: Well preserved. No signal abnormalities. Soft tissues: A few small T2 hyperintense lesions in the bilateral renal theo, left greater than right, may be due to small parapelvic cysts or calyectasis. Two T2 hyperintense lesions in the right hepatic lobe, measuring up to 1.3 cm, are indeterminate. Mild multilevel disc degeneration is most prominent at L1-L2. T12-L1: Patent canal and foramina. L1-L2: Minimal disc bulge without significant canal or foraminal stenosis. L2-L3: Mild canal stenosis due to disc bulge and ligamentum flavum thickening. No significant foraminal stenosis. L3-L4: Mild canal stenosis due to disc bulge and ligamentum flavum thickening. Mild bilateral foraminal stenoses due to disc bulge and facet arthrosis. L4-L5: Mild canal stenosis due to disc bulge and ligamentum flavum thickening. Mild bilateral foraminal stenoses due to disc bulge and facet arthrosis. L5-S1: Mild bilateral foraminal stenoses due to disc bulge and facet arthrosis. No significant canal stenosis. IMPRESSION: 1. Scattered T1 hypointense/STIR hyperintense marrow lesions throughout the visualized spine and pelvis may be due to metastatic disease or multiple myeloma in the appropriate clinical setting. 2. Associated, age indeterminate mild pathologic compression deformity of the L1 inferior endplate. No significant retropulsion. 3. Mild multilevel disc degeneration, most prominent at L1-L2. 4. Mild degenerative canal stenoses from L2-L3 to L4-L5. Mild multilevel bilateral degenerative foraminal stenoses. 5. Two T2 hyperintense lesions in the right hepatic lobe, measuring up to 1.3 cm, are indeterminate. This can be further evaluated with liver protocol CT or MRI. Signed by: Dr. Jeovany Villa M.D. on 12/01/2018 8:14 AM
== END ==
LOC: MRI 17:07
PROVIDERS: ATTEND Internal Medicine
DX: M54.42 Lumbago with sciatica, left side (principal); M54.41 Lumbago with sciatica, right side
CPT/HCPCS: 72148

== ENCOUNTER 2018-12-29 07:29 | Emergency (ER) | payer BC ==
[~2018-12-29] VITALS: Ht 188 cm; Wt 68.0 kg
[2018-12-29] MEDS ORDERED: TYLENOL WITH C1 EACH PO (09:15)
[2018-12-29] MEDS ORDERED: FENTANYL1 EAC1 (09:15)
[2018-12-29] MEDS ORDERED: LYRICA50 MG PO (09:15)
[2018-12-29] MEDS ORDERED: SODIUM CHLORIDE 0.9% 1000ML 1,000 ML IV STA (10:15)
[2018-12-29] MEDS ORDERED: CEFTRIAXONE SOD 1 GM/NS 50 ML 50 ML IV ONE (10:30)
[2018-12-29] MEDS ORDERED: KETOROLAC TROMETHAMINE 30 MG/ML VIAL IV ONE (10:30)
[2018-12-29 10:48] LABS: BASOPHILS % 0.3 % (0.0-1.0); EOSINOPHILS % 0.1 % (0.0-6.0); HEMATOCRIT 51.6 % (38.2-49.6); LYMPHOCYTES # (AUTO) 0.7 (1.0-3.2); LYMPHOCYTES % 6.2 % (18.0-39.1); MEAN CORPUSCULAR HEMOGLOBIN 28.6 pg (28-32); MEAN CORPUSCULAR HGB CONC 33.3 g/dL (31-35); MEAN CORPUSCULAR VOLUME 85.7 fL (81-99); MONOCYTES # (AUTO) 0.7 (0.2-0.8); MONOCYTES % 5.7 % (4.4-11.3); NEUTROPHILS # (AUTO) 10.3 (2.1-6.9); NEUTROPHILS % 86.6 % (38.7-80.0); PLATELET COUNT 346 x10e3/uL (140-360); RED BLOOD COUNT 6.02 x10e6/uL (4.3-5.7); RED CELL DISTRIBUTION WIDTH 15.1 % (11.7-14.4)
[2018-12-29 10:51] LABS: HEMOGLOBIN 17.2 g/dL (14.0-18.0)
[2018-12-29] MEDS ORDERED: ASPIRIN 81 MG CHEW TAB PO ONE (11:00)
[2018-12-29] MEDS ORDERED: FENTANYL 50 MCG/HR PATCH TOP SCH (11:00)
[2018-12-29] MEDS ORDERED: ONDANSETRON HCL INJ 2MG/ML 2ML 2 MG/ML VIAL IV ONE (11:00)
[2018-12-29 11:05] LABS: ALANINE AMINOTRANSFERASE 12 IU/L (0-55); ALBUMIN 3.6 g/dL (3.5-5.0); ALBUMIN/GLOBULIN RATIO 0.8 (0.8-2.0); ALKALINE PHOSPHATASE 114 IU/L (40-150); ANION GAP 17.2 mmol/L (8-16); BLOOD UREA NITROGEN 18 mg/dL (7-26); BUN/CREATININE RATIO 21 (6-25); CARBON DIOXIDE 26 mmol/L (22-29); CHLORIDE 96 mmol/L (98-107); CREATINE KINASE 149 IU/L (30-200); CREATININE, SERUM 0.85 mg/dL (0.72-1.25); EST GLOMERULAR FILTRATION RATE > 60 ML/MIN (60-); GLUCOSE 106 mg/dL (74-118); POTASSIUM 4.2 mmol/L (3.5-5.1); SODIUM 135 mmol/L (136-145)
--- NOTE | 2018-12-29 11:41 | Diagnostic Imaging Report ---
EXAMINATION: CHEST 2 VIEWS INDICATION: Chest pain, lung cancer. COMPARISON: Outside hospital CT chest from 12/22/2018. FINDINGS: TUBES and LINES: None. LUNGS: Opacity in the right upper lung corresponds to lung mass present on outside hospital CT chest from 12/22/2018. Mild bibasilar subsegmental atelectasis PLEURA: No pleural effusion or pneumothorax. HEART AND MEDIASTINUM: The cardiomediastinal silhouette is unremarkable. Status post tricuspid valve replacement. BONES AND SOFT TISSUES: Partially seen cervical spine fixation hardware. No acute osseous abnormality. Sclerotic focus within a right lower anterior rib. UPPER ABDOMEN: No free air under the diaphragm. IMPRESSION: Opacity in the right upper lung corresponds to lung mass present on outside hospital CT chest from 12/22/2018. Sclerotic focus within the right lower anterior rib, better characterized on prior CT. No acute radiographic abnormality. Signed by: Dr. Otis Tyler MD on 12/29/2018 11:38 AM
--- NOTE | 2018-12-29 12:12 | NUR ---
MEDICATED FOR PAIN ORDERED. PT TO BE DISCHARGED HOME AFTER SHOT TIME. DR. BLANCA IN TO TALK TO PT.
[2018-12-29] MEDS ORDERED: HYDROMORPHONE 2MG/ML 2 MG/ML ML IV ONE ×3 (12:30→17:30)
[2018-12-29] MEDS ORDERED: ONDANSETRON HCL INJ 2MG/ML 2ML 2 MG/ML VIAL ONE (12:58)
[2018-12-29] MEDS ORDERED: ONDANSETRON HCL INJ 2MG/ML 2ML 2 MG/ML VIAL IV STA (17:28)
== END 2018-12-29 13:43 | disposition home or self-care (01) ==
LOC: ER 07:29
DX: G89.3 Neoplasm related pain (acute) (chronic) (principal); C34.90 Malignant neoplasm of unspecified part of unspecified bronchus or lung; I10 Essential (primary) hypertension; Z86.73 Personal history of transient ischemic attack (TIA), and cerebral infarction without residual deficits; Z87.891 Personal history of nicotine dependence
CPT/HCPCS: 36415; 71046; 80053; 82550; 82553; 84484; 85025; 93005; 99284; J1170; J2405; J7030

== ENCOUNTER → 2018-12-30 | Outpatient (CLI) | payer BC ==
[~2018-12-30] MED LIST changes: +FENTANYL CITRATE/PF 100MCG/2 ML INJ ONE; +FENTANYL1 EAC1; +LYRICA50 MG PO; +MIDAZOLAM HCL 2 MG/2 ML VIAL ONE; +ONDANSETRON HCL INJ 2MG/ML 2ML 2 MG/ML VIAL IV STA; +SODIUM CHLORIDE 0.9% 500ML 500 ML ONE; +TYLENOL WITH C1 EACH PO
[2018-12-30 09:42] LABS: INR 0.9; PROTHROMBIN TIME 12.6 seconds (11.9-14.5)
[2018-12-30 09:43] LABS: PARTIAL THROMBOPLASTIN TIME 34.7 seconds (23.8-35.5)
--- NOTE | 2018-12-30 10:15 | NUR ---
1015 Received pt in Rad Nursing [place] #5 CT for R Upper lung biopsy Dr Tyler radiologist 100 Fentanyl Iv and 1 versed iv intra procedural. Pt with small pneumothorax and placed in Rad. holding area for Monitoring till PACU can receive 2 at 3LMN to continue. NO bleeding at rt upper chest dressing site. CXR scheduled at 1130 and 1230 respectfully and placed in computer. Back to baseline orientation Resquestd to no speak and stay in prone position till further notice. Iv ac w/o s/s infiltration. Abd soft and non tender Denies necessity to defecate or urinate family at bedside. Daughter Tanvi Melany #[phone]. Side rail up in low position with call light available. Remains NPO 400cc NS off to iv for pranav. dot/rn
--- NOTE | 2018-12-30 12:00 | NUR ---
1200n Face to face report Claudia RN Pt transfer to Rm #20 bed locked and low position and call light at reach. Iv line patent and standby. CXT due at 1230 portable and 1330. Keep quiet in prone position. Hx [place] 02 at 3lmn family at bedside. ds/rn
--- NOTE | 2018-12-30 12:40 | Diagnostic Imaging Report ---
CT Guided Right Upper Lobe Pulmonary Nodule Biopsy Consent: The nature of the procedure, including its risks, benefits and alternatives was explained to the patient who understood and gave consent. Of note, the increased risk of pneumothorax due to the patient's emphysema and the increased risk of hemorrhage due to surrounding vasculature was discussed with the patient during the informed consent. Operators: Otis Tyler MD ANESTHESIA: Intravenous conscious sedation was administered by radiology nursing. Continuous hemodynamic and respiratory monitoring was performed, including the use of pulse oximetry. Total sedation time: 45 minutes RADIATION DOSE: 749.2 mGy - cm Dose modulation, iterative reconstruction, and/or weight based adjustment of the mA/kV was utilized to reduce the radiation dose to as low as reasonably achievable. Medications: 10 cc of 1% subcutaneous lidocaine IV Fentanyl and IV Versed per nursing administration records Blood Products: None Implants: None Specimens: None. TECHNIQUE: The patient was placed in the supine position. Scans were obtained through the upper lungs which demonstrated a right upper lobe pulmonary nodule. A path to the lesion was identified. The skin of the right upper chest was marked, prepped, draped and anesthetized with 1% lidocaine. With CT guidance, a 19-gauge needle was inserted percutaneously into the right upper lobe nodule. Single pleural puncture performed and the introducer needle was advanced into the lesion. Repeat CT demonstrated a small right pneumothorax. Decision made to not perform fine needle aspirates due to the pneumothorax. Subsequently, four core biopsies were obtained with a 20-gauge core biopsy device. One biopsy was provided to the Pathology team for touch prep and the remaining samples were provided to Pathology in [place]. Repeat CT demonstrated small right pneumothorax which had slightly increased in size and trace perilesional hemorrhage. The patient continued to be hemodynamically stable with stable oxygenation. The introducer needle was removed, sterile bandage placed, and the patient was immediately positioned in the prone position in the stretcher. CONDITION/COMPLICATIONS: Clinically stable, small right apical pneumothorax and trace perilesional hemorrhagic products. IMPRESSION: Core biopsy of right upper lobe pulmonary nodule as above. Small right apical pneumothorax and trace perilesional hemorrhagic products, clinically stable post procedurally. PLAN: Close monitoring in PACU. Repeat CXR at 1 and 3 hours. Signed by: Dr. Otis Tyler MD on 12/30/2018 12:37 PM
--- NOTE | 2018-12-30 12:43 | NUR ---
1243pm face to face up date with [facility] KLEIN Family at bedside. Dr Tyler spoke to family with POC aware potential dc 1530. Slight pneumo thorax resolving per Radiologist Dr. Tyler Discharge paper filed earlier with [facility]. Reviewed dc papers with family and pt and has adequate understanding. Aware of importance to follow up with results Bed in low position and lock aware must remain in prone position Iv to left arm ac w/o s/s infiltration. 1430 Pt receiving full liquid diet became nauseated with dry heaves. Called Radiologist and received RBO for Zofran 4mg ivp which was given and vs and rt upper chest dressing dry and intact. 1500pm quiet no distress vs and ekg stable with dry dressing to chest. 02 titration from 3l n/c to no n/c 02 .On RA 93% sat. No sob and c/o pain Reort to Dr Tyler status ok for discharge 1530 assist to car with family in escort and driving aware of f/o car Rt upper chest dressing dry and intact. Iv removed to left aac sitew/o s/s infiltration coban 4x4 dressing [address]. Nausea resolved ds/rn
--- NOTE | 2018-12-30 13:03 | Diagnostic Imaging Report ---
EXAMINATION: CHEST XRAY POST PROCEDURE INDICATION: Status post lung biopsy with small right-sided pneumothorax. COMPARISON: Outside hospital CT chest from 12/22/2018. CT guided right lung nodule biopsy 12/30/2018. Chest radiograph 12/29/2018 FINDINGS: TUBES and LINES: None. LUNGS: Opacity in the right upper lung corresponds to lung mass present on outside hospital CT chest from 12/22/2018. Mild bibasilar subsegmental atelectasis PLEURA: Likely trace right apical pneumothorax. No evidence of pleural effusion. HEART AND MEDIASTINUM: The cardiomediastinal silhouette is unchanged. BONES AND SOFT TISSUES: Partially seen cervical spine fixation hardware. No acute osseous abnormality. Osseous lesions are better characterized on CT from 12/22/2018. UPPER ABDOMEN: No free air under the diaphragm. IMPRESSION: Likely trace right apical pneumothorax status post lung biopsy. Opacity in the right upper lung corresponds to lung mass present on outside hospital CT chest from 12/22/2018. Signed by: Dr. Otis Tyler MD on 12/30/2018 12:59 PM
--- NOTE | 2018-12-30 14:12 | Diagnostic Imaging Report ---
EXAMINATION: CHEST XRAY POST PROCEDURE INDICATION: Status post lung biopsy with small right-sided pneumothorax. COMPARISON: Outside hospital CT chest from 12/22/2018. CT guided right lung nodule biopsy 12/30/2018. Chest radiograph 12/30/18 at 1243 PM. FINDINGS: TUBES and LINES: None. LUNGS: Opacity in the right upper lung corresponds to lung mass present on outside hospital CT chest from 12/22/2018. Mild bibasilar subsegmental atelectasis PLEURA: Stable trace right apical pneumothorax. No evidence of pleural effusion. HEART AND MEDIASTINUM: The cardiomediastinal silhouette is unchanged. BONES AND SOFT TISSUES: Partially seen cervical spine fixation hardware. No acute osseous abnormality. Osseous lesions are better characterized on CT from 12/22/2018. UPPER ABDOMEN: No free air under the diaphragm. IMPRESSION: Stable trace right apical pneumothorax status post lung biopsy. Opacity in the right upper lung corresponds to lung mass present on outside hospital CT chest from 12/22/2018. Signed by: Dr. Otis Tyler MD on 12/30/2018 2:09 PM
--- NOTE | 2018-12-30 15:30 | NUR ---
Pt dc'd to home car with family per private car per w/c. Iv out no s/s infiltration Coban dressing. Rt Upper lung lobe dressing intact. Back to baseline orientation w/o nausea. Aware of importance of followup care and has copies of dc papers. ds/rn
== END ==
LOC: CT 07:40
PROVIDERS: ATTEND Internal Medicine Medical Oncology
DX: R91.8 Other nonspecific abnormal finding of lung field (principal)
CPT/HCPCS: 32405; 36415; 71045; 77012; 85049; 85610; 85730; 88172; 88173; 88305; J2250; J2405; J7040; 88342; 99152; 99153